=== PATIENT | male | born 1950 | race Caucasian/White ===

== ENCOUNTER → 2017-02-04 13:59 | Outpatient (CLI) | payer MEDICARE ==
[2015-09-09 23:21] VITALS: BMI 25.9
[~2017-02-04 13:59] MED LIST: AMBIEN10 MG PO; ELAVIL25 MG PO; ELAVIL75 MG PO; KLONOPIN1 MG PO; NASONEX NASAL S17 GM; NASONEX NASAL S17 GM NS; OXYCONTIN60 MG PO; TESTOSTERON200 MG/ML IM; TRAZODONE HCL50 MG PO; VESICARE5 MG PO; XARELTO20 MG PO
== END | disposition home or self-care (01) ==
LOC: D.MRI 13:59
DX: H81.90 Unspecified disorder of vestibular function, unspecified ear (principal)